=== PATIENT | female | born 1975 ===

== ENCOUNTER 2016-10-08 21:51 | Emergency (ER) | payer BC ==
--- NOTE | 2016-10-13 19:20 | ER ---
ADMIT: 10/08/2016 RM/LOC: ER [facility] MR#: [id number] [id number] [place] [address] [place] [address] Emergency Room Report SEX: F AGE: 41 : 1975 DATE: 10/08/2016 Patient is a 41-year-old female complaining of acute onset right vulvar pain and swelling after shaving today. Denies any vaginal discharge or prior history of STD. Exam remarkable for nontoxic, afebrile female with non- pointing Bartholin's cyst of right vulva. Bimanual exam unremarkable. Negative cervical tenderness or discharge. Urinalysis negative. HCG negative. PCR for chlamydia and GC pending. Patient was given Toradol 30 mg, Dilaudid 1 mg, Reglan 5 mg IM. Wound was then prepped with Betadine, anesthetized with Xylocaine 1%, and incised with 11 blade, probed with minimal purulent material. No cultures obtained. Packed with iodoform quarter-inch. Advised to remove packing in 3 days. Doxycycline 200 mg load, 100 mg b.i.d. x2 weeks, hydrocodone 5/325 as needed #20. Follow up Dr. Greco as needed. Nabor Mason MD/ carlo JOB #: [id number] CC: Nabor Mason MD, Attending Physician Segundo Greco MD, Family Physician
== END 2016-10-08 23:39 | disposition home or self-care (01) ==
LOC: ER 21:51
PROC: 0U9LXZZ Drainage of Vestibular Gland, External Approach (ICD-10-PCS; principal; 2016-10-08)
DX: N75.0 Cyst of Bartholin's gland (principal); Z86.718 Personal history of other venous thrombosis and embolism; Z79.899 Other long term (current) drug therapy